=== PATIENT | male | born 1980 | race Hispanic/Latino ===

== ENCOUNTER 2018-05-12 03:06 | Emergency (ER) | payer SELFPAY ==
[2018-05-12 03:34] VITALS: BP 138/105; PULSE 117; RESP 20; TEMP 98.1; O2SAT 97
--- NOTE | 2018-05-12 03:42 | C.PDOC ---
Time Seen by Provider: 05/12/18 03:41 Chief Complaint (Nursing): Substance Abuse Past Medical History Vital Signs: Last Vital Signs Temp 98.1 F 05/12/18 03:25 Pulse 117 H 05/12/18 03:25 Resp 20 05/12/18 03:25 BP 138/105 H 05/12/18 03:25 Pulse Ox 97 05/12/18 03:25 - Social History Hx Alcohol Use: No Hx Substance Use: Yes - Immunization History Hx Tetanus Toxoid Vaccination: No Hx Influenza Vaccination: No ED Course And Treatment O2 Sat by Pulse Oximetry: 97 Disposition Counseled Patient/Family Regarding: Studies Performed, Diagnosis - Disposition Disposition Time: 03:41
== END 2018-05-12 03:41 | disposition left against medical advice (07) ==
LOC: C.ER 03:06
DX: Z02.89 Encounter for other administrative examinations (principal); F19.10 Other psychoactive substance abuse, uncomplicated